=== PATIENT | female | born 1990 | race Caucasian/White ===

== ENCOUNTER 2018-04-16 13:18 | Outpatient (CLI) | payer MEDICAID, OTHER ==
[~2018-04-16] VITALS: Ht 157.5 cm; Wt 80.4 kg
[~2018-04-16 13:18] MED LIST: FERR325C PO; PREN1TAB49 PO
[2018-04-16 13:24] VITALS: Ht 157.5 cm; Wt 80.4 kg
[2018-04-16 14:14] VITALS: BP 110/65; PULSE 97; RESP 18
--- NOTE | 2018-04-16 20:29 | PN ---
Triage Information Date/Time Apr 16, 2018 Reason for visit: SROM Weeks of Gestation 32w 5d /Para 4/1 Diabetes: none Hypertention: none Additional information PMHx: none. PSHx: x 1. POBHx: x 1 at 36 weeks, urgent for SRO/ distress. NKDA Objective Vital Signs Date Temp Pulse Resp B/P (MAP) Pulse Ox O2 O2 Flow FiO2 Time Delivery Rate 04/16/18 98.0 97 18 110/65 Room Air 14:14 (80) Heart Rate: 140's Heart Rate Comments Accels to 180 BPM. No decels. Contractions: None (initially there were some UC's that went away with p.o. hydration.) Results/Medications Result Diagram: 04/16/18 1431 Results 24 hrs Laboratory Tests Test 04/16/18 14:31 04/16/18 16:33 White Blood Count 7.5 Red Blood Count 3.60 L Hemoglobin 10.6 L Hematocrit 31.9 L Mean Corpuscular Volume 88.6 Mean Corpuscular Hemoglobin 29.4 Mean Corpuscular Hemoglobin Concent 33.2 Red Cell Distribution Width 13.0 Platelet Count 246 Mean Platelet Volume 11.0 H Immature Granulocytes % 0.500 H Neutrophils % 72.1 Lymphocytes % 19.3 Monocytes % 6.8 Eosinophils % 0.9 Basophils % 0.4 Nucleated Red Blood Cells % 0.0 Immature Granulocytes # 0.040 H Neutrophils # 5.4 Lymphocytes # 1.4 Monocytes # 0.5 Eosinophils # 0.1 Basophils # 0.0 Nucleated Red Blood Cells # 0.0 Membranes Rupture NEGATIVE Imaging Results BPP 8/8 with an GIANNA of 18.2 cm. VTX. EFW 2038 grams. Anterior placenta. CX 3.3 cm and closed. Disposition: Discharge Assessment/Plan A: IUP at 32w 5d. SROM ruled out. False labor. P: Pt d/c'ed home with PTL precautions. ADAMARIS SANTANA MD Apr 16, 2018 20:29
--- NOTE | 2018-04-17 01:33 | TRIAGE ---
OB Triage Datetime Report Generated by CPN: 04/17/2018 01:32 Datetime: 04/16/2018 20:20 Labor Evaluation Frequency: X2 Monitor Mode: External Duration (sec)2399: 60 Pattern: Normal: <= 5 Contractions in 10 Minutes Heart Rate FHR Baseline Rate: 135 Monitor Mode: External US Variability: Moderate 6-25 bpm Accelerations: 15X15 Decelerations: None Datetime: 04/16/2018 20:00 Labor Evaluation Frequency: 2-8 Monitor Mode: External Duration (sec)2399: 40-90 Pattern: Normal: <= 5 Contractions in 10 Minutes Heart Rate FHR Baseline Rate: 145 Monitor Mode: External US Variability: Moderate 6-25 bpm Accelerations: 15X15 Decelerations: Variable Category: Category II Datetime: 04/16/2018 18:30 Stage of : OB Triage Maternal Assessment Level of Consciousness: Fully Conscious DTR's/Clonus: No Clonus Headache: Denies Nausea/Vomiting: Denies RUQ Epigastric Pain: Denies Labor Evaluation Frequency: x2 Monitor Mode: External Duration (sec)2399: 40-60 Quality: Mild Pattern: Normal: <= 5 Contractions in 10 Minutes Resting Tone [place]: Relaxed Heart Rate FHR Baseline Rate: 135 Monitor Mode: External US Variability: Moderate 6-25 bpm Accelerations: 15X15 Decelerations: None Category: Category I Pain Assessment Pain Scale: 0 Pain Presence: None/Denies Pain Type: N/A Vaginal Exam Membrane Status: Intact Datetime: 04/16/2018 17:29 Maternal Assessment Level of Consciousness: Fully Conscious DTR's/Clonus: No Clonus Headache: Denies Blurred Vision: No Nausea/Vomiting: Denies RUQ Epigastric Pain: Denies Facial Edema: None Labor Evaluation Frequency: x2 Monitor Mode: External Duration (sec)2399: 40-60 Quality: Mild Pattern: Normal: <= 5 Contractions in 10 Minutes Resting Tone [place]: Relaxed Heart Rate FHR Baseline Rate: 135 Monitor Mode: External US Variability: Moderate 6-25 bpm Accelerations: 15X15 Decelerations: None Category: Category I Pain Assessment Pain Scale: 0 Pain Presence: None/Denies Pain Type: N/A Vaginal Exam Membrane Status: Intact Datetime: 04/16/2018 15:26 Labor Evaluation Frequency: 0 Monitor Mode: External Resting Tone [place]: Relaxed Heart Rate FHR Baseline Rate: 140 Monitor Mode: External US Variability: Moderate 6-25 bpm Accelerations: 15X15 Decelerations: None Category: Category I Pain Assessment Pain Scale: 0 Pain Presence: None/Denies Pain Type: N/A Datetime: 04/16/2018 14:59 Labor Evaluation Frequency: 0 Monitor Mode: External Resting Tone [place]: Relaxed Heart Rate FHR Baseline Rate: 140 Monitor Mode: External US Variability: Moderate 6-25 bpm Accelerations: 15X15 Decelerations: None Category: Category I Pain Assessment Pain Scale: 0 Pain Presence: None/Denies Pain Type: N/A Datetime: 04/16/2018 14:36 Stage of : OB Triage Labor Evaluation Frequency: x 2 Monitor Mode: External Duration (sec)2399: 40-60 Quality: Mild Resting Tone [place]: Relaxed Heart Rate FHR Baseline Rate: 140 Monitor Mode: External US Variability: Moderate 6-25 bpm Accelerations: 15X15 Decelerations: None Category: Category I Pain Assessment Pain Scale: 0 Pain Presence: None/Denies Pain Type: N/A Datetime: 04/16/2018 14:20 Maternal Assessment Level of Consciousness: Fully Conscious Labor Evaluation Frequency: X1 Monitor Mode: External Duration (sec)2399: 60 Quality: Mild Pattern: Normal: <= 5 Contractions in 10 Minutes Resting Tone [place]: Relaxed Heart Rate FHR Baseline Rate: 130 Monitor Mode: External US Variability: Moderate 6-25 bpm Accelerations: 15X15 Decelerations: None Category: Category I Pain Presence: None/Denies Datetime: 04/16/2018 14:15 Maternal Assessment Level of Consciousness: Fully Conscious DTR's/Clonus: DTRs 2+; No Clonus Headache: Denies Blurred Vision: No Respiratory Effort: Unlabored; Regular Rhythm; Equal Expansion Breath Sounds, Left: Clear and Equal Breath Sounds, Right: Clear and Equal Nausea/Vomiting: Denies RUQ Epigastric Pain: Denies Facial Edema: None Fall Risk Assessment History of Falling: (0) No Secondary Diagnosis: (0) No Ambulatory Aid: (0) Bedrest/Nurse Assist IV Therapy: (0) No Gait: (0) Normal/Bedrest/Immobile Mental Status: (0) Oriented to Own Ability Fall Score: 0 Fall Risk Score Definition: No Risk: No action required Datetime: 04/16/2018 14:11 Time Provider Notified: 04/16/2018 14:11 Datetime: 04/16/2018 13:22 Time of Arrival: 04/16/2018 13:17 EGA: 32.6 Arrived By: Ambulatory Arrived From: Office Chief Complaint: r/o SROM Movement: Present Contractions: Denies/Absent Rupture of Membranes: Denies Vaginal Bleeding: None Vaginal Discharge: Present Recent Sexual Intercouse: Denies Abdominal Trauma: Not Applicable Patient Complaints: Other Time Provider Notified: 04/16/2018 14:11 Provider Notified: DR. LUO Initial Plan: BPP, EFW, CBC, GIANNA, CERVICAL LENGTH Datetime: 04/16/2018 13:21 Time of Arrival: 04/16/2018 13:17 Datetime: 04/16/2018 13:20 Stage of : OB Triage
== END 2018-04-16 20:40 | disposition home or self-care (01) ==
LOC: OBT 13:18 → L-D 13:19 → OBT 20:40
PROVIDERS: ATTEND Obstetrics & Gynecology
DX: O42.913 Preterm premature rupture of membranes, unspecified as to length of time between rupture and onset of labor, third trimester (principal); Z3A.32 32 weeks gestation of pregnancy; O34.219 Maternal care for unspecified type scar from previous cesarean delivery
CPT/HCPCS: 76815; 76817; 76818; 84112; 85025; Z7500; G0463

== ENCOUNTER 2018-05-23 23:07 | Outpatient (CLI) | payer OTHER ==
[~2018-05-23] VITALS: Ht 160 cm; Wt 82.1 kg
[2018-05-23 23:27] VITALS: BP 135/85; PULSE 102; RESP 18
[2018-05-23 23:28] VITALS: Ht 160 cm; Wt 82.1 kg
[2018-05-23] MEDS ORDERED: HYDR28CR65 TP (23:51)
[2018-05-23] MEDS ORDERED: CALC-143 PO (23:51)
--- NOTE | 2018-05-24 01:42 | TRIAGE ---
OB Triage Datetime Report Generated by CPN: 05/24/2018 01:42 Datetime: 05/24/2018 01:13 Stage of : OB Triage Monitor Mode: External Pattern: Normal: <= 5 Contractions in 10 Minutes Resting Tone [place]: Relaxed Heart Rate FHR Baseline Rate: 125 Monitor Mode: External US Variability: Moderate 6-25 bpm Accelerations: 15X15 Decelerations: None Category: Category I Datetime: 05/24/2018 00:30 Labor Evaluation Frequency: 0 Monitor Mode: External Pattern: Normal: <= 5 Contractions in 10 Minutes Heart Rate FHR Baseline Rate: 135 Monitor Mode: External US FHR Baseline Changes: No Baseline Change Variability: Moderate 6-25 bpm Accelerations: 15X15 Datetime: 05/24/2018 00:00 Stage of : OB Triage Datetime: 05/23/2018 23:46 Stage of : OB Triage Monitor Mode: External Resting Tone [place]: Relaxed Contraction Comments: No contractions at this time. Heart Rate FHR Baseline Rate: 130 Monitor Mode: External US Variability: Moderate 6-25 bpm Accelerations: 15X15 Decelerations: None Category: Category I Pain Assessment Pain Scale: 0 Pain Presence: None/Denies Pain Type: N/A Pain Relief Measures: Comfort Measures Datetime: 05/23/2018 23:30 Stage of : OB Triage Assessment Type: Triage Maternal Assessment Level of Consciousness: Fully Conscious DTR's/Clonus: DTRs 2+; No Clonus Headache: Denies Blurred Vision: No Respiratory Effort: Unlabored; Regular Rhythm; Equal Expansion Breath Sounds, Left: Clear and Equal Breath Sounds, Right: Clear and Equal Nausea/Vomiting: Denies RUQ Epigastric Pain: Denies Lower Extremities Edema: None Degree: None Upper Extremities Edema: None Degree: None Facial Edema: None Temperature Route: Oral Fall Risk Assessment History of Falling: (0) No Secondary Diagnosis: (0) No Ambulatory Aid: (0) Bedrest/Nurse Assist IV Therapy: (0) No Gait: (0) Normal/Bedrest/Immobile Mental Status: (0) Oriented to Own Ability Fall Score: 0 Fall Risk Score Definition: No Risk: No action required Monitor Mode: External Monitor Mode: External US Pain Assessment Pain Scale: 0 Pain Presence: None/Denies Pain Type: N/A Pain Goal: 0 Pain Relief Measures: Comfort Measures Datetime: 05/23/2018 23:29 Time of Arrival: 05/23/2018 23:07 EGA: 38.1 Arrived By: Wheelchair Arrived From: Emergency Dept Chief Complaint: Decreased movement, body rash x 1 week. Movement: Decreased Contractions: Denies/Absent Rupture of Membranes: Denies Vaginal Bleeding: None Vaginal Discharge: Present Recent Sexual Intercouse: Denies Abdominal Trauma: Not Applicable Patient Complaints: Other Time Provider Notified: 05/23/2018 23:37 Provider Notified: Initial Plan: VS, EFM Datetime: 05/23/2018 23:25 Stage of : OB Triage Temperature Route: Oral Datetime: 04/16/2018 14:15 Fall Score: 0 Fall Risk Score Definition: No Risk: No action required Datetime: 04/16/2018 13:22 EGA: 32.6
--- NOTE | 2018-05-24 06:53 | PN ---
Triage Information Date/Time Reason for visit: DFM Weeks of Gestation Patient is a 28-year-old 4 para 1 at 38 weeks and 2 days of gestation with estimated date of delivery June 05, 2018 Patient presents with chief complaint of decreased movement at home but she feels movement here in triage Patient denies any uterine contractions, denies any vaginal bleeding or leaking fluid She reports of a rash and itching on her abdomen and bilateral upper extremities Previous obstetrical history significant for x1 Patient desires a repeat to be scheduled by her own [facility] RECONDITIONER /Para 4 para 1 Objective Vital Signs Date Temp Pulse Resp B/P (MAP) Pulse Ox O2 O2 Flow FiO2 Time Delivery Rate 05/23/18 97.8 102 18 135/85 Room Air 23:27 (102) Heart Rate: 140's Heart Rate Comments heart rate tracing category 1 Contractions: None Results/Medications Result Diagram: 05/24/18 0022 05/24/18 0022 Results 24 hrs Laboratory Tests Test 05/23/18 23:30 05/24/18 00:22 Urine Color YELLOW Urine Clarity CLEAR Urine pH 7.0 Urine Specific [place] 1.013 Urine Ketones NEGATIVE Urine Nitrite NEGATIVE Urine Bilirubin NEGATIVE Urine Urobilinogen NEGATIVE Urine Leukocyte Esterase NEGATIVE Urine Hemoglobin NEGATIVE Urine Glucose NEGATIVE Urine Total Protein NEGATIVE White Blood Count 8.0 Red Blood Count 3.90 L Hemoglobin 11.5 L Hematocrit 34.5 L Mean Corpuscular Volume 88.5 Mean Corpuscular Hemoglobin 29.5 Mean Corpuscular Hemoglobin Concent 33.3 Red Cell Distribution Width 14.9 H Platelet Count 199 Mean Platelet Volume 11.0 H Immature Granulocytes % 0.300 Neutrophils % 67.6 Lymphocytes % 21.4 Monocytes % 7.4 Eosinophils % 2.8 Basophils % 0.5 Nucleated Red Blood Cells % 0.0 Immature Granulocytes # 0.020 Neutrophils # 5.4 Lymphocytes # 1.7 Monocytes # 0.6 Eosinophils # 0.2 Basophils # 0.0 Nucleated Red Blood Cells # 0.0 Sodium Level 136 Potassium Level 3.7 Chloride Level 106 Carbon Dioxide Level 22 Anion Gap 8 Blood Urea Nitrogen 9 Creatinine 0.61 Est Glomerular Filtrat Rate mL/min > 60 Glucose Level 91 Calcium Level 9.5 Total Bilirubin 0.3 Direct Bilirubin 0.00 Indirect Bilirubin 0.3 Aspartate Amino Transf (AST/SGOT) 20 Alanine Aminotransferase (ALT/SGPT) 15 Alkaline Phosphatase 232 H Total Protein 6.9 Albumin 3.5 Globulin 3.40 H Albumin/Globulin Ratio 1.02 Imaging Results PROCEDURE: US OB. CLINICAL INDICATION: Decreased movement. TECHNIQUE: Multiple sonographic images of the pelvis were obtained. Transabdominal imaging only was performed. The images were reviewed on a PACS workstation. COMPARISON: US 04/16/2018 FINDINGS: There is a single viable intrauterine gestation. Cardiac activity is present with 132 beats per minute. There is a vertex presentation. Measurements were made in order to determine age. The results are as follows: BPD = 8.9 cm HC = 32.1 cm AC = 36.77 cm FL = 7.51 cm Estimated gestational age of approximately 7.5. The AUA estimated date of delivery is 06/07/2018. The EFW = 3674 g, at 83 percentile. The placenta is anterior, grade II. There is no evidence for an abruption or placenta previa. There is a normal amount of amniotic fluid with an GIANNA = 11.1. IMPRESSION: 1. Single viable intrauterine gestation of approximately 37 weeks and 6 days. 2. The estimated date of delivery is 06/07/2018. RPTAT: HFN .Lauren Giordano MD, Date Time Electronically viewed and signed by .Lauren Giordano MD, MD on 05/24/2018 01:01 .N/ CC: SADA LUO MD [id number] PROCEDURE: US biophysical profile. CLINICAL INDICATION: Decreased movement. well-being. TECHNIQUE: Multiple sonographic images of the uterus were obtained. The images were reviewed on a PACS workstation. COMPARISON: US 05/23/2018; US PELVIS 04/16/2018 FINDINGS: There is a single live intrauterine gestation. heart rate is 134 beats per minute. The position is cephalic. The placenta is anterior, grade II. The GIANNA is 11.1 cm. Breathing Movement: 2 Gross Body Movement: 2 Tone: 2 Qualitative Amniotic Fluid Volume: 2 TOTAL: 8 IMPRESSION: 1. Single viable intrauterine gestation. 2. Biophysical profile = 09/20. 3. GIANNA = 11.1 cm. RPTAT: HFN .Lauren Giordano MD, Date Time Electronically viewed and signed by .Lauren Giordano MD, MD on 05/24/2018 00:57 .N/ CC: SADA LUO MD [phone] Disposition: Discharge Assessment/Plan kick count instructions were given Bile acids were sent Patient instructed to follow-up with her own CAN RECONDITIONER in 1-2 days Patient instructed to return here to triage for repeat NST and BPP in 48 hours Copies To: CC: SADA LUO MD ; MARCELINA YATES MD May 24, 2018 06:53
== END 2018-05-24 01:30 | disposition home or self-care (01) ==
LOC: L-D 23:07 → OBT 23:07
PROVIDERS: ATTEND Obstetrics & Gynecology
DX: O36.8130 Decreased fetal movements, third trimester, not applicable or unspecified (principal); O26.893 Other specified pregnancy related conditions, third trimester; R21 Rash and other nonspecific skin eruption; Z3A.38 38 weeks gestation of pregnancy
CPT/HCPCS: 76815; 76818; 80053; 81003; 83789; 85025; Z7500; G0463

== ENCOUNTER 2018-05-25 08:33 | Outpatient (CLI) | payer OTHER ==
[~2018-05-25] VITALS: Ht 160 cm; Wt 82.3 kg
[~2018-05-25 08:33] MED LIST changes: +CALC-143 PO; +HYDR28CR65 TP
[2018-05-25 08:53] VITALS: Ht 160 cm; Wt 82.3 kg
[2018-05-25 08:54] VITALS: BP 122/62; PULSE 101; RESP 18
--- NOTE | 2018-05-25 11:43 | TRIAGE ---
OB Triage Datetime Report Generated by CPN: 05/25/2018 11:43 Datetime: 05/25/2018 10:46 Stage of : OB Triage Datetime: 05/25/2018 10:27 Stage of : OB Triage Datetime: 05/25/2018 09:42 Frequency: 0 Monitor Mode: External Pattern: Normal: <= 5 Contractions in 10 Minutes Resting Tone [place]: Relaxed FHR Baseline Rate: 155 Monitor Mode: External US Variability: Moderate 6-25 bpm Accelerations: 10X10 Decelerations: None Category: Category I Pain Scale: 0 Pain Presence: None/Denies Pain Type: N/A Pain Goal: 3 Pain Relief Measures: Comfort Measures Datetime: 05/25/2018 08:49 Stage of : OB Triage Datetime: 05/25/2018 08:44 Stage of : OB Triage Assessment Type: Triage Level of Consciousness: Fully Conscious DTR's/Clonus: DTRs 2+; No Clonus Headache: Denies Blurred Vision: No Respiratory Effort: Unlabored; Regular Rhythm; Equal Expansion Breath Sounds, Left: Clear and Equal Breath Sounds, Right: Clear and Equal Nausea/Vomiting: Denies RUQ Epigastric Pain: Denies Facial Edema: None Temperature Route: Axillary History of Falling: (0) No Secondary Diagnosis: (0) No Ambulatory Aid: (0) Bedrest/Nurse Assist IV Therapy: (0) No Gait: (0) Normal/Bedrest/Immobile Mental Status: (0) Oriented to Own Ability Fall Score: 0 Fall Risk Score Definition: No Risk: No action required Frequency: 0 Monitor Mode: External Pattern: Normal: <= 5 Contractions in 10 Minutes Resting Tone [place]: Relaxed FHR Baseline Rate: 150 Monitor Mode: External US Variability: Moderate 6-25 bpm Accelerations: 10X10 Decelerations: None Category: Category I Pain Scale: 0 Pain Presence: None/Denies Pain Type: N/A Pain Goal: 3 Pain Relief Measures: Comfort Measures Datetime: 05/25/2018 08:42 Time of Arrival: 05/25/2018 08:24 EGA: 38.3 Arrived By: Ambulatory Arrived From: Home Chief Complaint: FOLLOW UP FOR DFM, OCCAS UC'S, DENIES BLEEDING OR LEAKING Movement: Present Contractions: Occasional Rupture of Membranes: Denies Vaginal Discharge: Denies Recent Sexual Intercouse: Yes Abdominal Trauma: Fall Patient Complaints: Cramping Time Provider Notified: 05/25/2018 08:50 Provider Notified: ynes Initial Plan: MONITOR, BPP Datetime: 05/25/2018 08:36 EGA: 38.1
--- NOTE | 2018-05-25 14:58 | PN ---
Triage Information Date/Time 05/25/1801/31/1454 Reason for visit: DFM Weeks of Gestation 38w3d /Para A2 Diabetes: none Hypertention: none Objective Vital Signs Date Temp Pulse Resp B/P (MAP) Pulse Ox O2 O2 Flow FiO2 Time Delivery Rate 05/25/18 97.9 101 18 122/62 08:54 (82) Heart Rate: 150's (161) Contractions: None Results/Medications Imaging Results BPP 8/8 GIANNA 9.6 Disposition: Discharge Assessment/Plan A IUP 38w3d F/U for DFM P dischasrge home with routine labor instructions RTH prn for DFM especially f/u GIANNA in 3days ELIZA MELVIN MD May 25, 2018 14:58
== END 2018-05-25 11:15 | disposition home or self-care (01) ==
LOC: L-D 08:33 → OBT 08:33
PROVIDERS: ATTEND Obstetrics & Gynecology
DX: O36.8130 Decreased fetal movements, third trimester, not applicable or unspecified (principal); Z3A.38 38 weeks gestation of pregnancy
CPT/HCPCS: 76818; Z7500; G0463

== ENCOUNTER 2018-05-30 10:30 | Inpatient (IN) | payer OTHER ==
[2018-05-31] MEDS ORDERED: METHYLERGONOVINE 0.2 MG INJ IM PRN ×2 (13:30→18:30)
[2018-05-31] MEDS ORDERED: LIDOCAINE 1% (MPF) 30 ML INJ INJ PRN (13:30)
[2018-05-31] MEDS ORDERED: CARBOPROST 250 MCG INJ IM PRN ×2 (13:30→18:30)
[2018-05-31] MEDS ORDERED: MISOPROSTOL 200 MCG TAB PR PRN ×2 (13:30→18:30)
[2018-05-31] MEDS ORDERED: CEFAZOLIN 2 GM/50 ML (PMX) 50 ML IVPB ONE (13:30)
[2018-05-31] MEDS ORDERED: OXYTOCIN 30 UNITS/LR 500 ML IV SCH ×2 (13:30)
[2018-05-31] MEDS ORDERED: OXYTOCIN 30 UNITS/LR 500 ML IV PRN ×2 (13:30→18:30)
--- NOTE | 2018-05-31 15:41 | PREAC ---
Date/Time of Note Date/Time of Note DATE: 05/31/18 TIME: 15:41 Anesthesia Eval and Record Evaluation Time Pre-Procedure Interview DATE: 05/31/18 TIME: 15:41 Age 28 Sex female NPO: 8 hrs Preoperative diagnosis Planned procedure repeat c/s and BTL Past Medical History Past Medical History: None Surgery & Anesthesia Issues No known issue Meds Anticoagulation: No Beta Aide within 24 hr: No Reason Beta Aide not given: Pt. not on B-Aide Reported Medications Hydrocortisone/Aloe Vera (Cortizone-10 1% Creme) 28 Gm Cream..g., 28 GM TP TID 05/23/18 Calcium Citrate/Vitamin D (Citracal-Vitamin D 200 MG-250) 1 Each Tablet, 1 EACH PO DAILY, TAB 05/23/18 Ferrous Sulfate (Iron) 325 Mg Capsr, 325 MG PO BID TAKEN THIS AM 12/13/10 Vits W-Ca,Fe,Fa(<1MG) () 1 Tab Tablet, 1 TAB PO DAILY TAKEN THIS AM 12/13/10 Current Medications Lidocaine (Xylocaine 1% (Mpf)) 30 ml ONCE PRN INJ .EPISIOTOMY; Start 05/31/18 at 13:30 Oxytocin/Lactated Ringer's 500 ml @ 500 mls/hr ONCE POST IV ; Start 05/31/18 at 13:30 Oxytocin/Lactated Ringer's 500 ml @ 125 mls/hr POST IV ; Start 05/31/18 at 13:30 Oxytocin/Lactated Ringer's 500 ml @ 0 mls/hr ONCE PRN IV .VAGINAL BLEEDING; Start 05/31/18 at 13:30 Methylergonovine Maleate (Methergine) 0.2 mg ONCE PRN IM .VAGINAL BLEEDING; Start 05/31/18 at 13:30 Carboprost Tromethamine (Hemabate) 250 mcg ONCE PRN IM .VAGINAL BLEEDING; Start 05/31/18 at 13:30 Misoprostol (Cytotec) 1,000 mcg ONCE PRN [place] .VAGINAL BLEEDING; Start 05/31/18 at 13:30 Meds reviewed: Yes Allergies Coded Allergies: No Known Allergy (Unverified , 04/16/18) Allergies Reviewed: Yes Labs/Studies Labs Reviewed: Reviewed by anesthesiologist Result Diagram: 05/31/18 1310 Laboratory Tests 05/31/18 13:10 test: Positive Pre-procedure Exam Airway: Adequate mouth opening, Adequate thyromental dist Mallampati: Mallampati II Teeth: Normal Lung: Normal Heart: Normal ASA Physical Status ASA physical status: 2 Emergency: None Planned Anesthetic Neuraxial: Spinal Planned Pain Management Sub-arachniod narcotics Pre-operative Attestations Prior to commencing anesthesia and surgery, the patient was re-evaluated, there was verification of: *The patient's identity *The results of appropriate recent lab work and preoperative vital signs *The above evaluation not changing prior to induction *Anesthetic plan, risk benefits, alternative and complications discussed with patient/family; questions answered; patient/family understands, accepts and wishes to proceed. ADOLFO BARTON May 31, 2018 15:41
[2018-05-31] MEDS ORDERED: morphine SULFATE/PF (10 MG/10 ML) INJ ONE (15:52)
[2018-05-31] MEDS ORDERED: PHENYLephrine 10 MG INJ ONE (15:53)
[2018-05-31] MEDS ORDERED: DIPHENHYDRAMINE 50 MG INJ IV PRN ×2 (16:00)
[2018-05-31] MEDS ORDERED: METOCLOPRAMIDE 10 MG INJ IV PRN (16:00)
[2018-05-31] MEDS ORDERED: FENTAnyl 50 MCG/ML VIAL IV PRN ×2 (16:00)
[2018-05-31] MEDS ORDERED: HYDROmorphONE 1 MG/5 ML IV SYRINGE IV PRN ×3 (16:00)
[2018-05-31] MEDS ORDERED: HYDROmorphONE 0.5 MG/0.5 ML SYG IV PRN ×2 (16:00)
[2018-05-31] MEDS ORDERED: ALBUTEROL 0.083% (NEB) 2.5 MG/3 ML AMP HHN PRN (16:00)
[2018-05-31] MEDS ORDERED: ONDANSETRON 4 MG INJ IV PRN ×2 (16:00)
[2018-05-31] MEDS ORDERED: NALOXONE (0.4 MG/ML) INJ IV PRN (16:00)
[2018-05-31] MEDS ORDERED: KETOROLAC 30 MG INJ IV PRN (16:00)
--- NOTE | 2018-05-31 16:10 | PREOPHP ---
DATE OF ADMISSION: 05/31/2018 HISTORY OF PRESENT ILLNESS: This is a 28-year-old lady, 4, para 1, EDC is 06/05/2018, at 39 and 2/7 weeks' , admitted to labor and delivery area for repeat . She had care in my [place] office and the care was uneventful. She wanted to have a repeat C-sectio n plus tubal ligation. The procedures were explained to the patient and she understood everything to tally. The risks, benefits and alternatives were discussed with her as well. PAST PERSONAL HISTORY: No history of TB, asthma. ALLERGIES: NO ALLERGIES. SOCIAL HISTORY: The patient does not smoke. She does not drink. MEDICATIONS: She does not take any drugs except her: 1. Iron. 2. Vitamins. GYNECOLOGICAL HISTORY: She had menarche at the age of 10, every 28 days interval, 3 to 4 days durati on and moderate in amount. FAMILY HISTORY: Mother has diabetes and hypertension. OBSTETRICAL HISTORY: She is 4, para 1. Her first delivery was in 2011 by . The se cond in 2014, she had spontaneous at 4 weeks. In 2015, she had a spontaneous at 6 weeks as well. REVIEW OF SYSTEMS: CARDIOVASCULAR: No chest pains. RESPIRATORY: No cough. GASTROINTESTINAL: No diarrhea, no vomiting. GENITOURINARY: No dysuria. PHYSICAL EXAMINATION: GENERAL: Reveals a conscious, coherent lady and in no acute distress. VITAL SIGNS: Her blood pressure 120/80, pulse rate 80 per minute, respirations 16 per minute. BREASTS, HEART AND LUNGS: Within normal limits. ABDOMEN: Soft. No organomegaly. PELVIC: Revealed the cervix to be 2 cm dilated, 100% effaced, station floating in cephalic presentat ion with the bag of water intact. EXTREMITIES: No pedal edema. ADMITTING DIAGNOSES: 1. A 39 and 2/7 weeks' intrauterine in labor. 2. Previous section. 3. Multiparity. The patient desires to have a repeat plus tubal ligation. The procedures were explained to the patient and she understood everything totally. The risks, benefits and alternatives were discus sed with her as well. Dictated By: SADA SAM/JENNIFER Conf#: [id number] DID#: [id number]
[2018-05-31] MEDS ORDERED: ONDANSETRON 4 MG INJ ONE (16:25)
[2018-05-31] MEDS ORDERED: FENTAnyl 50 MCG/ML VIAL ONE ×3 (16:27→16:40)
[2018-05-31] MEDS ORDERED: OXYTOCIN 30 UNITS/LR 500 ML IV ONE (17:25)
[2018-05-31] MEDS ORDERED: LACTATED RINGER'S 1,000 ML IV SCH (18:02)
[2018-05-31] MEDS: OXYTOCIN 30 UNITS/LR 500 ML IV SCH (18:13)
[2018-05-31] MEDS ORDERED: METHYLERGONOVINE 0.2 MG TAB PO PRN (18:30)
[2018-05-31] MEDS ORDERED: IBUPROFEN 800 MG TAB PO PRN (18:30)
[2018-05-31] MEDS ORDERED: LANOLIN HPA 1 PKT TOP PRN (18:30)
[2018-05-31] MEDS ORDERED: HYDROCODONE/APAP (5/325) TAB PO PRN (18:30)
[2018-05-31] MEDS: KETOROLAC 30 MG INJ IV PRN (19:00)
[2018-05-31 19:40] VITALS: BP 118/72; PULSE 76; RESP 18
--- NOTE | 2018-05-31 20:00 | PAC ---
Date/Time of Note Date/Time of Note DATE: 05/31/18 TIME: 20:00 Post-Anesthesia Notes Post-Anesthesia Note Activity: WNL Respiratory function: WNL Cardiovascular function: WNL Mental status: Baseline Pain reasonably controlled: Yes Hydration appropriate: Yes Nausea/Vomiting absent: Yes ADOLFO BARTON May 31, 2018 20:00
[2018-05-31] MEDS: SENNA/DOCUSATE NA (8.6MG/50MG) TAB PO SCH (21:00)
[2018-06-01] MEDS: OXYTOCIN 30 UNITS/LR 500 ML IV SCH (00:23)
[2018-06-01 04:00] VITALS: BP 109/58; PULSE 99; RESP 18
[2018-06-01] MEDS: KETOROLAC 30 MG INJ IV PRN ×2 (05:36→12:43)
[2018-06-01 07:40] VITALS: BP 113/68; PULSE 101; RESP 18
[2018-06-01] MEDS: SENNA/DOCUSATE NA (8.6MG/50MG) TAB PO SCH ×2 (09:00→21:36)
[2018-06-01] MEDS ORDERED: LACTATED RINGER'S 1,000 ML IV SCH (10:30)
[2018-06-01 12:00] VITALS: BP 126/73; PULSE 99; RESP 18
--- NOTE | 2018-06-01 16:00 | PN ---
Date/Time of Note Date/Time of Note DATE: 06/01/18 TIME: 15:59 Assessment/Plan VTE Prophylaxis Risk score (from Ns)>0 risk: 3 SCD applied (from Ns): Yes Pharmacological prophylaxis: NA/contraindicated Pharm contraindication: low risk/ambulating Lines/Catheters IV Catheter Type (from [facility]): Peripheral IV Assessment/Plan Assessment/Plan POSTCSECTION DAY 1 ORDERED ADVANCE DIET TOLERATED CBC ON 3RD POSTOP DAY Result Diagram: 06/01/18 0633 06/01/18 0633 Results 24hrs Laboratory Tests Test 06/01/18 06:14 06/01/18 06:33 Lab Scanned Report REFERENCE LAB White Blood Count 11.7 #H Red Blood Count 3.82 L Hemoglobin 11.6 L Hematocrit 33.7 L Mean Corpuscular Volume 88.2 Mean Corpuscular Hemoglobin 30.4 Mean Corpuscular Hemoglobin Concent 34.4 Red Cell Distribution Width 14.2 Platelet Count 186 Mean Platelet Volume 11.2 H Immature Granulocytes % 0.300 Neutrophils % 80.6 H Lymphocytes % 10.7 L Monocytes % 7.3 Eosinophils % 0.7 Basophils % 0.4 Nucleated Red Blood Cells % 0.0 Immature Granulocytes # 0.040 H Neutrophils # 9.4 H Lymphocytes # 1.3 Monocytes # 0.9 Eosinophils # 0.1 Basophils # 0.1 Nucleated Red Blood Cells # 0.0 Sodium Level 135 Potassium Level 4.2 Chloride Level 105 Carbon Dioxide Level 21 Anion Gap 9 Blood Urea Nitrogen 9 Creatinine 0.61 Est Glomerular Filtrat Rate mL/min > 60 Glucose Level 71 Calcium Level 9.3 Subjective 24 Hr Interval Summary Free Text/Dictation POST CSECTION DAY 1 COMPLAIN OF INCISIONAL PAINS GOOD URINE OUTPUT PASSING GAS PER RECTUM NO BOWEL MOVEMENT YET Exam/Review of Systems Exam Vitals Vital Signs Date Temp Pulse Resp B/P (MAP) Pulse Ox O2 O2 Flow FiO2 Time Delivery Rate 06/01/18 98.5 99 18 126/73 99 Room Air 12:00 (90) Intake and Output 05/31/18 05/31/18 06/01/18 1515:00 23:00 07:00 IntakeIntake Total 850 ml OutputOutput Total 1453 ml 800 ml BalanceBalance -1453 ml 50 ml Exam VITAL SIGNS STABLE: YES AFEBRILE: YES BREAST NOT ENGORGED, NON-TENDER, NO APPRECIABLE MASS: YES LUNGS CLEAR, NO RALES, WHEEZES, RHONCHI: YES SINUS RHYTHM WITHOUT MURMUR: YES ABDOMEN: NON-TENDER FUNDUS: BELOW UMBILICUS BOWEL SOUNDS: PRESENT UTERUS: FIRM INCISION (CLEAN, DRY, AND INTACT): YES LOCHIA: LIGHT DEEP TENDON REFLEXES: 0 EXTREMITIES: NO CALF TENDERNESS EDEMA SCALE: NONE Results Results 24hrs Laboratory Tests Test 06/01/18 06:14 06/01/18 06:33 Lab Scanned Report REFERENCE LAB White Blood Count 11.7 #H Red Blood Count 3.82 L Hemoglobin 11.6 L Hematocrit 33.7 L Mean Corpuscular Volume 88.2 Mean Corpuscular Hemoglobin 30.4 Mean Corpuscular Hemoglobin Concent 34.4 Red Cell Distribution Width 14.2 Platelet Count 186 Mean Platelet Volume 11.2 H Immature Granulocytes % 0.300 Neutrophils % 80.6 H Lymphocytes % 10.7 L Monocytes % 7.3 Eosinophils % 0.7 Basophils % 0.4 Nucleated Red Blood Cells % 0.0 Immature Granulocytes # 0.040 H Neutrophils # 9.4 H Lymphocytes # 1.3 Monocytes # 0.9 Eosinophils # 0.1 Basophils # 0.1 Nucleated Red Blood Cells # 0.0 Sodium Level 135 Potassium Level 4.2 Chloride Level 105 Carbon Dioxide Level 21 Anion Gap 9 Blood Urea Nitrogen 9 Creatinine 0.61 Est Glomerular Filtrat Rate mL/min > 60 Glucose Level 71 Calcium Level 9.3 Medications Medication Current Medications Methylergonovine Maleate (Methergine) 0.2 mg ONCE PRN IM .VAGINAL BLEEDING; Start 05/31/18 at 13:30 Naloxone HCl (Narcan) 0.1 mg Q2M PRN IV .RESP RATE; Start 05/31/18 at 16:00; Stop 06/01/18 at 15:59 Ketorolac Tromethamine (Toradol) 30 mg Q6H PRN IV PAIN AFTER CSECTION Last administered on 06/01/18at 12:43; Admin Dose 30 MG; Start 05/31/18 at 16:00; Stop 06/01/18 at 15:59 Hydromorphone HCl (Dilaudid) 0.2 mg Q3H PRN IV .PAIN 1-5; Start 05/31/18 at 16:00; Stop 06/01/18 at 15:59 Hydromorphone HCl (Dilaudid) 0.4 mg Q3H PRN IV .PAIN 6-10; Start 05/31/18 at 16 :00; Stop 06/01/18 at 15:59 Diphenhydramine HCl (Benadryl) 25 mg Q6H PRN IV .ITCHING; Start 05/31/18 at 16:00; Stop 06/01/18 at 15:59 Ondansetron HCl (Zofran Inj) 4 mg Q6H PRN IV .NAUSEA/VOMITING; Start 05/31/18 at 16:00; Stop 06/01/18 at 15:59 Methylergonovine Maleate (Methergine) 0.2 mg Q6H PRN PO .VAGINAL BLEEDING; Start 05/31/18 at 18:30 Acetaminophen/ Hydrocodone Bitart ([place] (5/325)) 1 tab Q4H PRN PO MODERATE PAIN LEVEL 4-6; Start 05/31/18 at 18:30 Acetaminophen/ Hydrocodone Bitart ([place] (5/325)) 2 tab Q4H PRN PO SEVERE PAIN LEVEL 7-10; Start 05/31/18 at 18:30 Ibuprofen (Motrin) 800 mg Q8 PRN PO MILD PAIN LEVEL 1-3; Start 05/31/18 at 18:30 Simethicone (Mylicon) 160 mg Q8H PRN PO .GAS Last administered on 06/01/18at 12:49; Admin Dose 160 MG; Start 05/31/18 at 18:30 Senna/Docusate Sodium (Senokot-S) 1 tab BID PO Last administered on 06/01/18at 09:00; Admin Dose 1 TAB; Start 05/31/18 at 21:00 Lanolin (Lanolin Hpa) 1 applic BEDSIDE MEDICATION PRN TOP .NIPPLES; Start 05/31/18 at 18:30 Diphtheria/ Tetanus/Acell Pertussis (Adacel) 0.5 ml ONCE ONCE IM* ; Start 06/03/18 at 09:00; Stop 06/03/18 at 09:01 Measles/Mumps/ Rubella Vaccine Live (Mmr Ii Vaccine) 0.5 ml ONCE ONCE SC* ; Start 06/03/18 at 09:00; Stop 06/03/18 at 09:01 Oxytocin/Lactated Ringer's 500 ml @ 0 mls/hr ONCE PRN IV .VAGINAL BLEEDING; Start 05/31/18 at 18:30 Carboprost Tromethamine (Hemabate) 250 mcg ONCE PRN IM .VAGINAL BLEEDING; Start 05/31/18 at 18:30 Misoprostol (Cytotec) 1,000 mcg ONCE PRN [place] .VAGINAL BLEEDING; Start 05/31/18 at 18:30 Lactated Ringer's 1,000 ml @ 125 mls/hr Q8H IV Last administered on 06/01/18at 10:21; Admin Dose 125 MLS/HR; Start 06/01/18 at 10:30 SADA LUO MD Jun 01, 2018 16:00
[2018-06-01 16:30] VITALS: BP 120/78; PULSE 102; RESP 20
[2018-06-01] MEDS: HYDROCODONE/APAP (5/325) TAB PO PRN (17:55)
--- NOTE | 2018-06-01 18:19 | OPR ---
DATE OF OPERATION: 06/01/2018 PREOPERATIVE DIAGNOSES: 1. A 39 and 2/7 weeks' intrauterine in labor. 2. Previous . 3. Desires sterilization. 4. Multiparity. POSTOPERATIVE DIAGNOSES: 1. A 39 and 2/7 weeks' intrauterine in labor. 2. Previous . 3. Desires sterilization. 4. Multiparity. OPERATION PERFORMED: Repeat low transverse section plus bilateral tubal ligation and transe ction. SURGEON: Sada Goss MD TUBE WINDER HAND: Alana Maurer MD ANESTHESIA: Spinal. ANESTHESIOLOGIST: Miguel Rivera MD OPERATIVE TECHNIQUE: Under spinal anesthesia, the patient was prepped and draped in the usual fashio n for abdominal surgery. After checking for the effect of the anesthesia, a Pfannenstiel incision, 1 2 cm skin incision was performed. The incision was carried from the skin up to the fascia. Upon ope sinai the skin up to the fascia, small blood vessels were noted to be oozing and these were all cauter ized. Fascia was opened transversely followed by splitting the muscles vertical and the peritoneum v ertically. Upon opening the abdominal cavity, the bladder blade was put in place and incision was pe rformed on the lower uterine segment. Incision was performed from the serosa up to the endometrium a nd the miya was carried sideways with the aid of my 2 fingers. My left hand was inserted in the lowe r segment of the uterus and the bag of water was ruptured. Clear fluid was noted. Baby's head was d elivered with good fundal pressure. The baby's airway was quickly suctioned with amniotic fluid. Th e anterior shoulder, posterior shoulder and rest of the body of the baby was delivered. Baby was blake ded to the nursery nurse after 30 seconds clamping the cord. Then the cord blood was obtained. Then the placenta was delivered manually and complete. The uterus was exteriorized. The uterus was nicolas nsed with wet lap sponge to make sure that no membranes were left behind. After correct sponge count, the uterus was closed in the usual fashion using #1 chromic for the first layer, continuous l ocking suture was used followed by #1 chromic for the second layer, imbricating sutures were used. B leeders were checked and there was no bleeding noted. Then, the right tube was grasped on the center where the avascular area was. A 1 cm tube was stick tied at the proximal and distal portions with 2 -0 silk stick tie with 2-0 chromic above the first silk tie and another free tie with 2-0 chromic abo ve the second tie. The right tube was cut and the cut ends were cauterized. The right fimbria was i dentified. Same thing was done on the left side. A 1 cm tube was transected on both sides. The lef t fimbria was identified. Both ovaries were identified. They were healthy looking. The broad ligam ents were checked for any hematoma and there was none noted. Then the uterus was put back to the pel fouzia cavity. Once again, uterine incision was checked for any bleeders and there was no bleeding note d. After correct sponge count, needle count and instrument count as confirmed by the client technologies specialist and pilot control operator helper, the abdomen was closed in the usual fashion using 0 Vicryl for the peritoneum, 0 Vicryl f or the muscles, for the fascia 0 Vicryl continuous stitch was used followed by few [id number] pond tures for the subcutaneous tissue, it was closed with 3-0 Vicryl and the skin was closed with 3-0 Fouzia ryl, subcuticular suture was used. The patient tolerated the procedure well. Estimated blood loss w as about 600 mL. Vital signs were stable during and after the delivery. She delivered a healthy bab y care at 16:24, 05/31/2018 weighing 7 pounds and 12 ounces, 3510 grams, 9 and 9, 19-1/2 inches long. Dictated By: SADA SAM/JENNIFER Conf#: [id number] DID#: [id number]
[2018-06-01 19:30] VITALS: BP 114/68; PULSE 71; RESP 19
[2018-06-01] MEDS: IBUPROFEN 800 MG TAB PO SCH (21:36)
[2018-06-02 04:00] VITALS: BP 112/64; PULSE 86; RESP 20
[2018-06-02] MEDS: IBUPROFEN 800 MG TAB PO SCH ×3 (05:44→22:00)
[2018-06-02 08:00] VITALS: BP 104/55; PULSE 94; RESP 18
[2018-06-02] MEDS: SENNA/DOCUSATE NA (8.6MG/50MG) TAB PO SCH ×2 (08:50→21:08)
[2018-06-02 15:31] VITALS: BP 127/78; PULSE 95; RESP 20
--- NOTE | 2018-06-02 18:30 | PN ---
Date/Time of Note Date/Time of Note DATE: 06/02/18 TIME: 18:29 Assessment/Plan VTE Prophylaxis Risk score (from Nsg)>0 risk: 3 SCD applied (from Nsg): No SCD contraindicated: low risk/ambulating Pharmacological prophylaxis: NA/contraindicated Pharm contraindication: low risk/ambulating Lines/Catheters IV Catheter Type (from Nrsg): Peripheral IV Assessment/Plan Assessment/Plan POST CSECTION DAY 2 HOME TOMORROW CBC TOMORROW COUNSELED INSTRUCTED PRESCRIPTION GIVEN FOR PAIN RETURN TO CLINIC IN 2 WEEKS CALL OFFICE IF THERE IS ANY PROBLEM OR CONCERN CONTINUE WITH VITAMINS OD AND FERROUS SULFATE 325MG PO TID DIET ADVISED Result Diagram: 06/01/1863206/01/18632 Subjective 24 Hr Interval Summary Free Text/Dictation POST CSECTION DAY 2 LITTLE BOWEL MOVEMENT GOOD URINE OUTPUT FEELS LESS INCISIONAL PAINS Exam/Review of Systems Exam Vitals Vital Signs Date Temp Pulse Resp B/P (MAP) Pulse Ox O2 O2 Flow FiO2 Time Delivery Rate 06/02/18 98.0 95 20 127/78 Room Air 15:31 (94) 06/01/18 99 16:30 Intake and Output 06/01/18 06/01/18 06/02/18 1515:00 23:00 07:00 IntakeIntake Total 650 ml 250 ml OutputOutput Total 300 ml 900 ml BalanceBalance 350 ml -650 ml Exam VITAL SIGNS STABLE: YES AFEBRILE: YES BREAST NOT ENGORGED, NON-TENDER, NO APPRECIABLE MASS: YES LUNGS CLEAR, NO RALES, WHEEZES, RHONCHI: YES SINUS RHYTHM WITHOUT MURMUR: YES ABDOMEN: NON-TENDER FUNDUS: BELOW UMBILICUS BOWEL SOUNDS: PRESENT UTERUS: FIRM INCISION (CLEAN, DRY, AND INTACT): YES LOCHIA: LIGHT DEEP TENDON REFLEXES: 0 EXTREMITIES: NO CALF TENDERNESS EDEMA SCALE: NONE Medications Medication Current Medications Methylergonovine Maleate (Methergine) 0.2 mg ONCE PRN IM .VAGINAL BLEEDING; Start 05/31/18 at 13:30 Methylergonovine Maleate (Methergine) 0.2 mg Q6H PRN PO .VAGINAL BLEEDING; Start 05/31/18 at 18:30 Acetaminophen/ Hydrocodone Bitart ([place] (5/325)) 1 tab Q4H PRN PO MODERATE PAIN LEVEL 4-6 Last administered on 06/01/18 17:55; Admin Dose 1 TAB; Start 05/31/18 at 18:30 Acetaminophen/ Hydrocodone Bitart ([place] (5/325)) 2 tab Q4H PRN PO SEVERE PAIN LEVEL 7-10 Last administered on 06/02/18 12:22; Admin Dose 2 TAB; Start 05/31/18 at 18:30 Simethicone (Mylicon) 160 mg Q8H PRN PO .GAS Last administered on 06/01/18 12:49; Admin Dose 160 MG; Start 05/31/18 at 18:30 Senna/Docusate Sodium (Senokot-S) 1 tab BID PO Last administered on 06/02/18 08:50; Admin Dose 1 TAB; Start 05/31/18 at 21:00 Lanolin (Lanolin Hpa) 1 applic BEDSIDE MEDICATION PRN [place] .NIPPLES; Start 05/31/18 at 18:30 Diphtheria/ Tetanus/Acell Pertussis (Adacel) 0.5 ml ONCE ONCE IM* ; Start 06/03/18 at 09:00; Stop 06/03/18 at 09:01 Measles/Mumps/ Rubella Vaccine Live (Mmr Ii Vaccine) 0.5 ml ONCE ONCE SC* ; Start 06/03/18 at 09:00; Stop 06/03/18 at 09:01 Oxytocin/Lactated Ringer's 500 ml @ 0 mls/hr ONCE PRN IV .VAGINAL BLEEDING; Start 05/31/18 at 18:30 Carboprost Tromethamine (Hemabate) 250 mcg ONCE PRN IM .VAGINAL BLEEDING; Start 05/31/18 at 18:30 Misoprostol (Cytotec) 1,000 mcg ONCE PRN [place] .VAGINAL BLEEDING; Start 05/31/18 at 18:30 Ibuprofen (Motrin) 800 mg Q8 PO Last administered on 06/02/18 13:40; Admin Dose 800 MG; Start 06/01/18 at 22:00 SADA LUO MD Jun 02, 2018 18:30
[2018-06-02 20:00] VITALS: BP 111/68; PULSE 91; RESP 21
[2018-06-02] MEDS: HYDROCODONE/APAP (5/325) TAB PO PRN (21:08)
[2018-06-03] MEDS ORDERED: traMADol-APAP 37.5-325 1 TAB PO PRN
[2018-06-03] MEDS ORDERED: traMADol 50 MG TAB PO PRN (01:30)
[2018-06-03 04:00] VITALS: BP 119/78; PULSE 103; RESP 20
[2018-06-03] MEDS: IBUPROFEN 800 MG TAB PO SCH (06:10)
[2018-06-03 08:00] VITALS: BP 109/74; PULSE 90; RESP 17
[2018-06-03] MEDS: SENNA/DOCUSATE NA (8.6MG/50MG) TAB PO SCH (08:47)
[2018-06-03] MEDS ORDERED: MEASLES,MUMPS,RUBELLA VACCINE INJ SC* ONE (09:00)
[2018-06-03] MEDS ORDERED: DIPHTH/TET/ACEL PERTUSS (ADULT) 0.5 ML VIAL IM* ONE (09:00)
--- NOTE | 2018-06-04 13:17 | DELSUM ---
Delivery Summary A-C Datetime Report Generated by CPN: 06/04/2018 13:17 DELIVERY PERSONNEL Account Development Representative: Jaelyn, Honey MATERNAL INFORMATION Delivery Anesthesia: Spinal Placenta Cultured: No Maternal Complications: None LABOR SUMMARY EDC: 06/05/2018 00:00 No. Babies in Womb: 1 Attempted: No Labor Anesthesia: None LABOR INFORMATION Reason for Induction: Not Applicable Oxytocin: N/A Group B Beta Strep: Positive Antibiotics # of Doses: 1 Antibiotics Time of Last Dose: 05/31/2018 16:12 Steroids Given: None Reason Steroids Not Administered: Not Applicable MEMBRANES Membranes Rupture Method: Artificial Rupture of Membranes: 05/31/2018 16:24 Length of Rupture (hr): 0.00 Amniotic Fluid Color: Clear Amniotic Fluid Amount: Large Amniotic Fluid Odor: None STAGES OF LABOR Stage 3 hr: 0 Stage 3 min: 2 CSECTION DELIVERY Primary Indication: Repeat Elective Secondary Indication: N/A CSection Urgency: Elective CSection Incidence: Repeat Labor: No Labor Elective: N/A CSection Incision: Lower Uterine Transverse Sterilization Procedure: [place] BABY A INFORMATION Delivery Date/Time: 05/31/2018 16:24 Method of Delivery: Born in Route : No : N/A Forceps: N/A Vacuum Extraction: N/A Shoulder Dystocia : N/A SHOULDER DYSTOCIA BABY A Delivery Date/Time: 05/31/2018 16:24 PRESENTATION/POSITION BABY A Presentation: Cephalic Cephalic Presentation: Vertex Vertex Position: Left Occipital Posterior Breech Presentation: N/A PLACENTA INFORMATION BABY A Placenta Delivery Time : 05/31/2018 16:26 Placenta Method of Delivery: Manual Removal Placenta Status: Delivered SCORES BABY A Heart Rate 1 min: >100 bpm Resp Effort 1 min: Good Cry Reflex Irritability 1 min: Cough/Sneeze/Pulls Away Muscle Tone 1 min: Active Motion Color 1 min: Body [place], Extremit Blue Resuscitation Effort 1 min: Tactile Stimulation SCORE 1 MIN: 9 Heart Rate 5 min: >100 bpm Resp Effort 5 min: Good Cry Reflex Irritability 5 min: Cough/Sneeze/Pulls Away Muscle Tone 5 min: Active Motion Color 5 min: Body [place], Extremit Blue Resuscitation Effort 5 min: Tactile Stimulation SCORE 5 MIN: 9 INFORMATION BABY A Gestational Age at Delivery: 39.2 Gestational Status: Full Term- 39- 40.6 Weeks Outcome : Liveborn Condition : Stable Infant Sex: Female IDENTIFICATION/MEDS BABY A ID Band Number: [id number] ID Band Location: Right Leg; Left Arm Sensor Applied: Yes Sensor Number: [id number] Sensor Location : Cord Clamp Vitamin K Given : Not Given Erythromycin Given: Not Given WEIGHT/LENGTH BABY A Birthweight (gm): 3510 Weight (lb): 7 Infant Weight (oz): 12 Length (in): 19.50 Length (cm): 49.53 CORD INFORMATION BABY A No. Cord Vessels: 3 Nuchal Cord : N/A Cord Blood Taken: No Infant Suction: Mouth; Nose ASSESSMENT BABY A Complications: None Physical Findings at Delivery: Within Normal Limits Respirations: Appears Normal Motion Picture Operator/ALS Called : No Care By: MARIELLA PAIGE Transferred To: Remains with Mother
== END 2018-06-03 13:16 | disposition home or self-care (01) | DRG 785 ==
LOC: L-D 05-31 12:27 → PP1 05-31 19:45
PROVIDERS: ADMIT Obstetrics & Gynecology; ATTEND Obstetrics & Gynecology
PROC: 10D00Z1 Extraction of Products of Conception, Low, Open Approach (ICD-10-PCS; principal; 2018-06-01)
PROC: 0UB70ZZ Excision of Bilateral Fallopian Tubes, Open Approach (ICD-10-PCS; 2018-06-01)
DX: O34.211 Maternal care for low transverse scar from previous cesarean delivery (principal); Z3A.39 39 weeks gestation of pregnancy; Z37.0 Single live birth; Z30.2 Encounter for sterilization
CPT/HCPCS: 80048; 85025; 85610; 85730; 86592; 86850; 86900; 86901; 87340; 88302; 99464; J0690; J1885; J2274; J2405; J2590; J3010; J7120